=== PATIENT | male | born 1980 | race African-American/Black ===

== ENCOUNTER 2021-03-16 04:47 | Day surgery (SDC) | payer OTHER ==
[~2021-03-16] VITALS: Ht 180.3 cm; Wt 99.8 kg
[2021-03-16] MEDS ORDERED: IBUPROFEN600 MG (05:36)
[2021-03-16 05:38] VITALS: BP 120/74; Ht 180.3 cm; Wt 99.8 kg
[2021-03-16 06:07] LABS: BASOPHILS 0.2 % (0-2); EOSINOPHILS 2.5 % (0-7); HEMATOCRIT 39.1 % (42.0-54.0); HEMOGLOBIN 13.1 g/dL (13.5-17.5); LYMPHOCYTE ABS# 1.42 10x3/uL (1.32-3.57); LYMPHOCYTES 29.7 % (15-50); MCH 29.8 pg (26.0-34.0); MCHC 33.5 g/dL (31.0-37.0); MCV 89.1 fL (80.0-100.0); MEAN PLATELET VOLUME 10.7 fL (7.4-10.4); MONOCYTES 9.2 % (2-11); NEUTROPHIL ABS# 2.79 10x3/uL (1.78-5.38); NEUTROPHILS 58.4 % (40-80); PLATELET COUNT 204 10x3/uL (130-400); RBC 4.39 10x6/uL (4.20-6.10); RDW 12.9 % (11.5-14.5); WBC 4.8 10x3/uL (4.8-10.8)
[2021-03-16 06:25] LABS: CALCIUM 8.9 mg/dL (8.5-10.1); CARBON DIOXIDE 30.1 mmol/L (21.0-32.0); CREATININE - SERUM 1.2 mg/dL (0.6-1.3); POTASSIUM - SERUM 4.1 mmol/L (3.5-5.1)
[2021-03-16] MEDS ORDERED: PERCOCET 5-3251 TAB PO (07:11)
--- NOTE | 2021-03-16 15:35 | OP ---
PATIENT NAME: MORGAN WASHINGTON MEDICAL RECORD: [id number] :84 LOCATION:[facility] ADMISSION DATE: SURGEON: VENKATA NORRIS DO DATE OF OPERATION: 03/16/2021 PROCEDURE PERFORMED: Right knee arthroscopy with medial and lateral meniscal tears. PREOPERATIVE DIAGNOSIS: Right knee medial and lateral meniscal tears. POSTOPERATIVE DIAGNOSIS: Right knee medial and lateral meniscal tears. INDICATIONS: Mr. Washington is a 40-year-old male who is an inmate for a while. He has had knee pain for years, he catching, popping and locking. He had an MRI a year ago. We had him set for the surgery and then he ended up not showing up until recently. I informed of the risks of this including retear, infection, bleeding, damage to nerves and vessels, need for further surgery, continued pain, loss of motion of the knee, retear of the meniscus, blood clots and even . He signed the consent. SURGEON: Venkata Norris DO DESCRIPTION OF PROCEDURE: The patient was taken to the operative suite, laid in the supine position, given general anesthetic, 2 grams Ancef, sedated, and LMA was placed. The right lower extremity was then prepped and draped in sterile fashion. A timeout was performed. Everyone was in agreeance with the correct side, site, patient and procedure. I then began by making an incision over the lateral aspect of the knee for the portal with an 11-blade scalpel. Trocar was entered into the joint. I then inspected the suprapatellar pouch. No loose body was seen in the medial or lateral gutters. I then flexed the knee down and made a medial portal with an 18-gauge spinal needle and 11-blade scalpel. Trocar brought in. I then inspected the medial meniscus. He had a tear on the posterior horn of medial meniscus at the white-white zone. I then brought in a [place] meniscal repair and repaired the meniscus and holding it back very nicely reducing the tear. I then went to the lateral side after checking the ACL was in good shape. I [id number]'ed the knee and he had a large radial tear of the lateral meniscus, it was subluxing into the joint. I then used 5 [place] meniscal repairs to reduce it back and pin it back into where it should be and then making a good repair. I then used a power pick in the notch and picked about 6 holes in the notch to get pluripotential cells to flow into the knee to help assist with repairing. I then removed the instruments after turning the water off and suction on, and closed the portal sites with 4-0 Monocryl in inverted interrupted fashion. He was dressed with Steri-Strips, Adaptic, 4 x 4s, ABD, Webril, Bry wrap and placed in a hinged knee brace locked in extension. He was awakened and taken to recovery in stable condition. BLOOD LOSS: Minimal. COMPLICATIONS: None. TRANSINT:[id number] Voice Confirmation ID: [id number] DOCUMENT ID: [id number] OPERATIVE REPORT [id number] MORGAN WASHINGTON MICHAEL D, DO at 1535 CC: [id number] DICTATION DATE: 03/16/21915 [employer] MEMBER: 03/16/21 1414 [facility] [address] [place] [address]
== END 2021-03-16 09:45 | disposition home or self-care (01) ==
LOC: D.OPS 04:47
PROVIDERS: Anesthesiology; ATTEND Orthopaedic Surgery
DX: M25.561 Pain in right knee (principal); S83.221D Peripheral tear of medial meniscus, current injury, right knee, subsequent encounter; S83.261D Peripheral tear of lateral meniscus, current injury, right knee, subsequent encounter